=== PATIENT | male | born 1955 | race Two or more races ===

== ENCOUNTER 2020-08-19 13:47 | Inpatient (IN) | payer OTHER ==
[~2020-08-19] VITALS: Ht 185.4 cm; Wt 67.6 kg
[2020-08-19] MEDS ORDERED: SODIUM CHLORIDE 0.9% 1,000 ML IV ONE ×2 (14:15)
[2020-08-19] MEDS ORDERED: cefTRIAXone 1GM/50ML D5W 50 ML IV ONE (17:00)
[2020-08-19] MEDS ORDERED: AZITHROMYCIN 500MG/ 250ML 250 ML IV ONE (17:00)
[2020-08-19 18:02] LABS: White Blood Cell 5.9 10^3/uL (4.4-10.8)
[2020-08-19 18:05] LABS: Hematocrit 39.6 % (41.0-53.0); Mean Corpuscular Hemoglobin 35.1 pg (28.0-32.0); Mean Corpuscular Hgb Conc. 35.5 g/dL (32.0-36.0); Red Cell Distribution Width 13.8 % (11.8-14.3)
[2020-08-19 18:17] LABS: Band Neutrophils % (manual) 0; Basophils % (manual) 0 (0.0-2.0); Blast Cells 0; Eosinophils % (manual) 0 (0-7); Metamyelocytes % 0; Myelocytes % 0; Promyelocytes % 0; Reactive Lymphocytes 0
[2020-08-19 18:27] LABS: Albumin 2.3 g/dL (3.4-5.0); Anion Gap 4 (5-15); Blood Urea Nitrogen 15 mg/dL (7-18); Calcium 7.1 mg/dL (8.5-10.1); Carbon Dioxide 25 mmol/L (21-32); Chloride 105 mmol/L (98-107); Glucose 103 mg/dL (74-106); Potassium 3.7 mmol/L (3.5-5.1); Sodium 134 mmol/L (136-145)
[2020-08-19 18:33] LABS: Alanine Aminotransferase 44 U/L (16-61); Alkaline Phosphatase 53 U/L (45-117); Aspartate Aminotransferase 66 U/L (15-37); BUN/Creatinine Ratio 18.1; Bilirubin, Total 0.8 mg/dL (0.2-1.0); GFR African American 119 mL/min; GFR Non-African American 99 mL/min; Total Protein 6.6 g/dL (6.4-8.2)
[2020-08-19] MEDS ORDERED: VANCOMYCIN PER PHARMACY 0 MG IV SCH (19:00)
[2020-08-19] MEDS ORDERED: ACETAMINOPHEN 500 MG TAB PO PRN (19:00)
[2020-08-19] MEDS ORDERED: DOCUSATE CALCIUM 240 MG CAP PO PRN (19:00)
[2020-08-19] MEDS ORDERED: hydrALAZINE HCL 20 MG/ML VL IV PRN (19:00)
[2020-08-19] MEDS ORDERED: SODIUM CHLORIDE 0.9% 500 ML IV ONE (19:00)
[2020-08-19] MEDS ORDERED: ONDANSETRON HCL 4 MG/2 ML VIAL IV PRN (19:00)
[2020-08-19] MEDS ORDERED: NITROGLYCERIN 0.4 MG SL TAB SL PRN (19:00)
[2020-08-19] MEDS ORDERED: MORPHINE SULFATE INJECTION 2 MG/ML SYRG IV PRN ×2 (19:00)
[2020-08-19] MEDS ORDERED: VANCOMYCIN 1GM/250ML 250 ML IV ONE (20:15)
[2020-08-19 20:44] LABS: Lymphocytes % (manual) 26 (10.0-50.0); Monocytes % (manual) 18 (0-12)
[2020-08-19 21:21] LABS: CRP High Sensitivity 1.07 mg/dL (< 0.3)
[2020-08-19] MEDS: BUDESONIDE (INHALATION) 180 MCG IH IN SCH (22:00)
[2020-08-19] MEDS: ENOXAPARIN SOD 40 MG/0.4 ML SYRINGE SC SCH (23:00)
[2020-08-20 01:35] VITALS: BP 108/76
[2020-08-20] MEDS: PIPERACILLIN-TAZOB 3.375GM 100 ML IV SCH ×2 (03:21→07:09)
[2020-08-20] MEDS: BUDESONIDE (INHALATION) 180 MCG IH IN SCH ×2 (06:32→18:44)
[2020-08-20] MEDS: ALBUTEROL SULF HFA 90MCG INH 200DOSE IN PRN ×2 (06:32→18:44)
[2020-08-20 08:00] VITALS: BP 99/66
[2020-08-20 09:00] VITALS: BP 99/66
[2020-08-20] MEDS: ZINC SULFATE 220mg CAP or TAB PO SCH (10:21)
[2020-08-20] MEDS: ASCORBIC ACID 1,000 MG TAB PO SCH (10:21)
[2020-08-20] MEDS: PANTOPRAZOLE 40 MG TAB PO SCH (10:21)
[2020-08-20] MEDS: CHOLECALCIFEROL (VITD3) 2,000 UNIT CAP/TAB PO SCH (10:21)
[2020-08-20] MEDS: ENOXAPARIN SOD 40 MG/0.4 ML SYRINGE SC SCH ×2 (10:22→22:29)
[2020-08-20 10:52] LABS: Hemoglobin 12.7 g/dL (13.5-17.5); White Blood Cell 7.3 10^3/uL (4.4-10.8)
[2020-08-20 10:59] LABS: Hematocrit 35.7 % (41.0-53.0); Mean Corpuscular Hemoglobin 35.4 pg (28.0-32.0); Mean Corpuscular Hgb Conc. 35.7 g/dL (32.0-36.0); Mean Corpuscular Volume 99.2 fL (80.0-100.0); Red Cell Distribution Width 13.7 % (11.8-14.3)
[2020-08-20 11:06] LABS: Basophils % (manual) 0 (0.0-2.0); Blast Cells 0; Eosinophils % (manual) 0 (0-7); Potassium 3.5 mmol/L (3.5-5.1); Promyelocytes % 0; Reactive Lymphocytes 0
[2020-08-20 11:13] LABS: BUN/Creatinine Ratio 16.9; Bilirubin, Total 1.3 mg/dL (0.2-1.0); Calcium 7.1 mg/dL (8.5-10.1); Total Protein 5.7 g/dL (6.4-8.2)
[2020-08-20] MEDS ORDERED: diphenhdrAMINE HCL 50 MG/1 ML VL IV PRN (12:00)
[2020-08-20] MEDS ORDERED: ASPirin 81 mg TAB PO ONE (12:00)
[2020-08-20] MEDS: DOXYCYCLINE 100MG/250ML 250 ML IV SCH ×2 (12:31→23:13)
[2020-08-20 14:00] LABS: Band Neutrophils % (manual) 1; Monocytes % (manual) 15 (0-12)
[2020-08-20 14:01] LABS: Lymphocytes % (manual) 23 (10.0-50.0); Metamyelocytes % 1; Myelocytes % 0
[2020-08-20 16:00] VITALS: BP 108/57
[2020-08-20 16:08] LABS: Cholesterol 116 mg/dL (< 200); HDL Cholesterol 42 mg/dL (40-59); LDL Cholesterol 70 mg/dL (< 100); Triglycerides 60 mg/dL (< 150)
[2020-08-20] MEDS ORDERED: VANCOMYCIN 1GM/250ML 250 ML IV SCH (17:00)
[2020-08-20] MEDS: Ensure Enlive Strawberry 8oz Bottle PO SCH (17:48)
[2020-08-20] MEDS: ATORVASTATIN 20 MG TAB PO SCH (22:29)
[2020-08-20] MEDS: levETIRAcetam 500 MG TAB PO SCH (22:29)
[2020-08-20] MEDS: LORazepam 0.5 MG TAB PO PRN (22:30)
[2020-08-21] VITALS: BP 106/71
[2020-08-21 01:20] VITALS: BP 102/62
[2020-08-21 01:43] VITALS: BP 100/65
[2020-08-21 03:11] VITALS: BP 110/70
[2020-08-21 07:05] LABS: Cholesterol 122 mg/dL (< 200); HDL Cholesterol 45 mg/dL (40-59); LDL Cholesterol 75 mg/dL (< 100); Triglycerides 50 mg/dL (< 150)
[2020-08-21] MEDS: BUDESONIDE (INHALATION) 180 MCG IH IN SCH ×2 (07:30→19:50)
[2020-08-21] MEDS: ALBUTEROL SULF HFA 90MCG INH 200DOSE IN PRN ×2 (07:30→19:50)
[2020-08-21] MEDS: Ensure Enlive Strawberry 8oz Bottle PO SCH ×2 (07:35→18:24)
[2020-08-21 08:00] VITALS: BP 123/65
[2020-08-21] MEDS: ASPirin 81 mg TAB PO SCH (09:52)
[2020-08-21] MEDS: levETIRAcetam 500 MG TAB PO SCH ×2 (09:53→23:23)
[2020-08-21] MEDS: PANTOPRAZOLE 40 MG TAB PO SCH (09:53)
[2020-08-21] MEDS: ASCORBIC ACID 1,000 MG TAB PO SCH (09:53)
[2020-08-21] MEDS: ZINC SULFATE 220mg CAP or TAB PO SCH (09:53)
[2020-08-21] MEDS: ENOXAPARIN SOD 40 MG/0.4 ML SYRINGE SC SCH ×2 (09:54→23:23)
[2020-08-21] MEDS: CHOLECALCIFEROL (VITD3) 2,000 UNIT CAP/TAB PO SCH (09:54)
[2020-08-21] MEDS ORDERED: REMDESIVIR PER PHARMACY 0 ML IV SCH (11:00)
[2020-08-21] MEDS: DOXYCYCLINE 100MG/250ML 250 ML IV SCH ×2 (12:21→23:23)
[2020-08-21] MEDS ORDERED: REMDESIVIR 200 MG in NS 210ml LOADING DOSE ADULT IV ONE (15:00)
[2020-08-21 15:53] LABS: Alcohol, Urine < 3.0 mg/dL (0-10); Amphetamine Screen, Urine NEGATIVE (NEGATIVE); Barbiturate Scree,Urine NEGATIVE (NEGATIVE); Benzodiazephine Screen, Urine NEGATIVE (NEGATIVE); Cannabinoid Screen, Urine NEGATIVE (NEGATIVE); Cocaine Screen, Urine NEGATIVE (NEGATIVE); Opiate Scree,Urine NEGATIVE (NEGATIVE); Phencyclidine Screen, Urine NEGATIVE (NEGATIVE)
[2020-08-21 16:00] VITALS: BP 113/68
[2020-08-21 16:07] LABS: Urine Bacteria FEW /hpf (None Seen); Urine Blood Negative /uL (Negative); Urine Specific Gravity 1.015 (1.001-1.035); Urine WBC 15 /hpf (0 - 3)
[2020-08-21] MEDS: ATORVASTATIN 20 MG TAB PO SCH (23:23)
[2020-08-21] MEDS: LORazepam 0.5 MG TAB PO PRN (23:24)
[2020-08-22 00:16] VITALS: BP 129/70
[2020-08-22 03:00] LABS: BUN/Creatinine Ratio 23.1; Calcium 7.6 mg/dL (8.5-10.1); Potassium 3.7 mmol/L (3.5-5.1)
[2020-08-22 03:03] LABS: Bilirubin, Total 0.7 mg/dL (0.2-1.0); Total Protein 5.8 g/dL (6.4-8.2)
[2020-08-22] MEDS: BUDESONIDE (INHALATION) 180 MCG IH IN SCH ×2 (06:14→20:06)
[2020-08-22] MEDS: ALBUTEROL SULF HFA 90MCG INH 200DOSE IN PRN ×2 (06:14→20:07)
[2020-08-22] MEDS: Ensure Enlive Strawberry 8oz Bottle PO SCH ×2 (08:00→18:00)
[2020-08-22] MEDS: ZINC SULFATE 220mg CAP or TAB PO SCH (09:34)
[2020-08-22] MEDS: ASCORBIC ACID 1,000 MG TAB PO SCH (09:34)
[2020-08-22] MEDS: levETIRAcetam 500 MG TAB PO SCH ×2 (09:34→23:33)
[2020-08-22] MEDS: ASPirin 81 mg TAB PO SCH (09:34)
[2020-08-22] MEDS: PANTOPRAZOLE 40 MG TAB PO SCH (09:35)
[2020-08-22] MEDS: CHOLECALCIFEROL (VITD3) 2,000 UNIT CAP/TAB PO SCH (09:35)
[2020-08-22] MEDS: ENOXAPARIN SOD 40 MG/0.4 ML SYRINGE SC SCH ×2 (09:35→23:33)
[2020-08-22] MEDS: DOXYCYCLINE 100MG/250ML 250 ML IV SCH ×2 (12:47→23:34)
[2020-08-22] MEDS: REMDESIVIR 100mg 100 MG in SODIUM CHL 0.9% 230 ML IV SCH (15:00)
[2020-08-22 16:00] VITALS: BP 103/63
[2020-08-22] MEDS: ATORVASTATIN 20 MG TAB PO SCH (23:33)
[2020-08-22] MEDS: LORazepam 0.5 MG TAB PO PRN (23:34)
[2020-08-23] VITALS: BP 106/67
[2020-08-23] MEDS: ALBUTEROL SULF HFA 90MCG INH 200DOSE IN PRN ×2 (07:32→22:38)
[2020-08-23] MEDS: BUDESONIDE (INHALATION) 180 MCG IH IN SCH ×2 (07:32→22:00)
[2020-08-23 08:00] VITALS: BP 105/66
[2020-08-23 08:13] LABS: Hematocrit 32.8 % (41.0-53.0); Hemoglobin 11.6 g/dL (13.5-17.5); Mean Corpuscular Hemoglobin 34.8 pg (28.0-32.0); Red Blood Cells 3.34 10^6/uL (4.5-5.90); White Blood Cell 7.5 10^3/uL (4.4-10.8)
[2020-08-23 08:17] LABS: Mean Corpuscular Hgb Conc. 35.4 g/dL (32.0-36.0); Mean Corpuscular Volume 98.4 fL (80.0-100.0); Red Cell Distribution Width 13.5 % (11.8-14.3)
[2020-08-23 08:20] LABS: Potassium 3.8 mmol/L (3.5-5.1)
[2020-08-23 08:28] LABS: Albumin 1.9 g/dL (3.4-5.0); BUN/Creatinine Ratio 19.7; Bilirubin, Total 0.9 mg/dL (0.2-1.0); Calcium 7.2 mg/dL (8.5-10.1); Total Protein 5.7 g/dL (6.4-8.2)
[2020-08-23 08:33] LABS: Basophils % (manual) 0 (0.0-2.0); Blast Cells 0; Metamyelocytes % 0; Myelocytes % 0; Promyelocytes % 0; Reactive Lymphocytes 0
[2020-08-23] MEDS: ENOXAPARIN SOD 40 MG/0.4 ML SYRINGE SC SCH ×2 (09:19→21:39)
[2020-08-23] MEDS: ASPirin 81 mg TAB PO SCH (09:19)
[2020-08-23] MEDS: ZINC SULFATE 220mg CAP or TAB PO SCH (09:19)
[2020-08-23] MEDS: PANTOPRAZOLE 40 MG TAB PO SCH (09:19)
[2020-08-23] MEDS: levETIRAcetam 500 MG TAB PO SCH ×2 (09:19→21:39)
[2020-08-23] MEDS: CHOLECALCIFEROL (VITD3) 2,000 UNIT CAP/TAB PO SCH (09:20)
[2020-08-23] MEDS: Ensure Enlive Strawberry 8oz Bottle PO SCH ×2 (09:20→18:00)
[2020-08-23] MEDS: ASCORBIC ACID 1,000 MG TAB PO SCH (09:20)
[2020-08-23] MEDS ORDERED: ALBUAER3 IN (11:55)
[2020-08-23] MEDS ORDERED: ASPI81CH43 PO (11:55)
[2020-08-23] MEDS ORDERED: ASCO500T11 PO (11:55)
[2020-08-23] MEDS ORDERED: CHOL20007 PO (11:55)
[2020-08-23] MEDS ORDERED: DOXY-340 PO (11:55)
[2020-08-23] MEDS ORDERED: ATOR20TA50 PO (11:55)
[2020-08-23] MEDS ORDERED: KEP500T PO (11:55)
[2020-08-23] MEDS ORDERED: ZINC220T6 PO (11:55)
[2020-08-23] MEDS: DOXYCYCLINE 100MG/250ML 250 ML IV SCH ×2 (12:00→23:26)
[2020-08-23 12:47] LABS: Band Neutrophils % (manual) 4; Eosinophils % (manual) 1 (0-7); Lymphocytes % (manual) 36 (10.0-50.0); Monocytes % (manual) 22 (0-12)
[2020-08-23 14:05] VITALS: BP 105/66
[2020-08-23] MEDS: REMDESIVIR 100mg 100 MG in SODIUM CHL 0.9% 230 ML IV SCH (15:36)
[2020-08-23 16:00] VITALS: BP 104/69
[2020-08-23] MEDS: ATORVASTATIN 20 MG TAB PO SCH (21:39)
[2020-08-24] VITALS: BP 113/71
[2020-08-24 06:54] LABS: Potassium 3.9 mmol/L (3.5-5.1)
[2020-08-24 07:05] LABS: Albumin 1.9 g/dL (3.4-5.0); BUN/Creatinine Ratio 21.4; Bilirubin, Total 0.7 mg/dL (0.2-1.0); Calcium 7.3 mg/dL (8.5-10.1); Total Protein 5.7 g/dL (6.4-8.2)
[2020-08-24] MEDS: ALBUTEROL SULF HFA 90MCG INH 200DOSE IN PRN ×2 (07:55→21:14)
[2020-08-24] MEDS: BUDESONIDE (INHALATION) 180 MCG IH IN SCH ×2 (07:55→21:14)
[2020-08-24 08:00] VITALS: BP 110/61
[2020-08-24] MEDS: Ensure Enlive Strawberry 8oz Bottle PO SCH ×2 (08:03→17:48)
[2020-08-24] MEDS: ENOXAPARIN SOD 40 MG/0.4 ML SYRINGE SC SCH ×2 (11:09→21:29)
[2020-08-24] MEDS: CHOLECALCIFEROL (VITD3) 2,000 UNIT CAP/TAB PO SCH (11:09)
[2020-08-24] MEDS: levETIRAcetam 500 MG TAB PO SCH ×2 (11:10→21:28)
[2020-08-24] MEDS: PANTOPRAZOLE 40 MG TAB PO SCH (11:10)
[2020-08-24] MEDS: ASCORBIC ACID 1,000 MG TAB PO SCH (11:10)
[2020-08-24] MEDS: ASPirin 81 mg TAB PO SCH (11:10)
[2020-08-24] MEDS: ZINC SULFATE 220mg CAP or TAB PO SCH (11:10)
[2020-08-24] MEDS: DOXYCYCLINE 100MG/250ML 250 ML IV SCH ×2 (11:32→23:12)
[2020-08-24] MEDS: REMDESIVIR 100mg 100 MG in SODIUM CHL 0.9% 230 ML IV SCH (15:42)
[2020-08-24 16:00] VITALS: BP 107/71
[2020-08-24] MEDS: ATORVASTATIN 20 MG TAB PO SCH (21:29)
[2020-08-24] MEDS: LORazepam 0.5 MG TAB PO PRN (23:12)
[2020-08-25] VITALS: BP 116/66
[2020-08-25 08:00] VITALS: BP 116/82
[2020-08-25] MEDS: ALBUTEROL SULF HFA 90MCG INH 200DOSE IN PRN (08:20)
[2020-08-25] MEDS: BUDESONIDE (INHALATION) 180 MCG IH IN SCH (08:20)
[2020-08-25 08:23] LABS: Calcium 7.8 mg/dL (8.5-10.1); Potassium 4.1 mmol/L (3.5-5.1)
[2020-08-25 08:26] LABS: Bilirubin, Total 0.7 mg/dL (0.2-1.0); Total Protein 5.8 g/dL (6.4-8.2)
[2020-08-25] MEDS: Ensure Enlive Strawberry 8oz Bottle PO SCH (09:16)
[2020-08-25] MEDS: levETIRAcetam 500 MG TAB PO SCH (10:56)
[2020-08-25] MEDS: ASPirin 81 mg TAB PO SCH (10:56)
[2020-08-25] MEDS: ASCORBIC ACID 1,000 MG TAB PO SCH (10:56)
[2020-08-25] MEDS: PANTOPRAZOLE 40 MG TAB PO SCH (10:57)
[2020-08-25] MEDS: ZINC SULFATE 220mg CAP or TAB PO SCH (10:57)
[2020-08-25] MEDS: CHOLECALCIFEROL (VITD3) 2,000 UNIT CAP/TAB PO SCH (10:57)
[2020-08-25] MEDS: ENOXAPARIN SOD 40 MG/0.4 ML SYRINGE SC SCH (10:58)
[2020-08-25] MEDS: DOXYCYCLINE 100MG/250ML 250 ML IV SCH (12:00)
[2020-08-25] MEDS: REMDESIVIR 100mg 100 MG in SODIUM CHL 0.9% 230 ML IV SCH (14:57)
== END 2020-08-25 17:00 | disposition home or self-care (01) | DRG 137 ==
LOC: EDBD 13:47 → ER 13:47 → TELE 13:48 → TELE-WESTW 23:55
PROVIDERS: ADMIT Family Medicine; ATTEND Internal Medicine
PROC: XW13325 Transfusion of Convalescent Plasma (Nonautologous) into Peripheral Vein, Percutaneous Approach, New Technology Group 5 (ICD-10-PCS; principal; 2020-08-21)
PROC: XW033E5 Introduction of Remdesivir Anti-infective into Peripheral Vein, Percutaneous Approach, New Technology Group 5 (ICD-10-PCS; 2020-08-21)
DX: U07.1 COVID-19 (principal); J12.82 Pneumonia due to coronavirus disease 2019; E43 Unspecified severe protein-calorie malnutrition; E87.1 Hypo-osmolality and hyponatremia; E86.0 Dehydration; G40.409 Other generalized epilepsy and epileptic syndromes, not intractable, without status epilepticus; R73.03 Prediabetes; F17.210 Nicotine dependence, cigarettes, uncomplicated; I63.9 Cerebral infarction, unspecified; N39.0 Urinary tract infection, site not specified; Z68.1 Body mass index [BMI] 19.9 or less, adult; Z79.82 Long term (current) use of aspirin; Z79.899 Other long term (current) drug therapy; G93.41 Metabolic encephalopathy
CPT/HCPCS: 36415; 70450; 71045; 80053; 80061; 80307; 81001; 82140; 82306; 82565; 82728; 83605; 83615; 83735; 84443; 84484; 85007; 85027; 85379; 86141; 86850; 86900; 86901; 87040; 87426; 93005; 93306; 93886; 94640; 95819; 96360; 96361; G0378; J0696; J2543; J3490